=== PATIENT | male | born 1965 | race Caucasian/White ===

== ENCOUNTER → 2021-05-30 12:13 | Outpatient (CLI) | payer OTHER, SELFPAY ==
--- NOTE | 2021-05-30 | DI.RAD.S_ITS ---
PROCEDURE: FL SHOULDER INJECTION MR/CT RT INDICATIONS: LABRAL TEAR COMPARISON: None. TECHNIQUE: The indications, alternatives, benefits, risks, and complications of the procedure were explained to the patient. Written informed consent was obtained and placed in the chart. The shoulder was examined fluoroscopically and a site for needle placement chosen for entry into the glenohumeral joint from an anterior approach. The skin was prepped and draped in a sterile fashion, and 1% lidocaine infiltrated from skin down to joint capsule. A spinal needle was inserted into the glenohumeral joint, and a small amount of iodinated contrast media injected to confirm intra-articular placement of the needle tip. This was followed by approximately 12 mL dilute solution of a gadolinium containing MR contrast agent. The needle was removed and a dressing was applied. The patient was given postprocedural instructions and sent to the MR suite for MR imaging. FINDINGS: A single fluoroscopic spot image demonstrates intra-articular location of injected iodinated contrast. IMPRESSION: Successful fluoroscopically guided administration of dilute Gadolinium solution into the shoulder joint for MR arthrogram. Dictated by: Ferny Hargrove M.D. on 05/30/2021 at 15:12 Approved by: Ferny Hargrove M.D. on 05/30/2021 at 15:12
--- NOTE | 2021-05-30 | DI.MRI.S_ITS ---
PROCEDURE: MR SHOULDER RT W CON INDICATIONS: LABRAL TEAR TECHNIQUE: After the administration of 12 mL of dilute intra-articular Gadolinium contrast, oblique coronal T1 and T2 spin echo with fat saturation, oblique sagittal T1 spin echo with and without fat saturation, oblique sagittal T2 fast spin echo with fat saturation, axial T1 spin echo with fat saturation through the shoulder. COMPARISON: None. FINDINGS: Image quality: Excellent. Rotator cuff: Supraspinatus tendinopathy with full-thickness tear measuring approximately 1.6 cm (7-11). Infraspinatus tendinopathy with small partial bursal and interstitial tears. The teres minor and subscapularis tendons are intact. Grade 1/2 atrophy of the supraspinatus muscle. Bones and bursae: No bone marrow contusions or fractures. Mild acromioclavicular joint degeneration. No os acromiale. Capsule and soft tissues: Linear signal within the biceps labral complex (7-10), compatible with tear. The long head of the biceps tendon demonstrates normal location and morphology. The rotator interval appears normal, without fibrosis. The coracohumeral ligament is of normal thickness. No intra-articular bodies. IMPRESSION: 1. Full-thickness tear of the supraspinatus as detailed above. 2. Infraspinatus tendinopathy with small partial bursal and interstitial tears. 3. Labral tear the biceps attachment. Dictated by: Víctor Kimball M.D. on 05/30/2021 at 14:08 Approved by: Víctor Kimball M.D. on 05/30/2021 at 14:14
--- NOTE | 2021-05-30 12:19 | DI.MRI.S_ITS ---
PROCEDURE: MR CERVICAL SPINE WO CON INDICATIONS: LABRAL TEAR OF RIGHT SHOULDER TECHNIQUE: Noncontrast sagittal T1 spin echo and T2 fast spin echo, sagittal STIR, foraminal oblique sagittal T2 fast spin echo, and axial gradient echo or T2 fast spin echo through the cervical spine. COMPARISON: None. FINDINGS: Image quality: Excellent. Alignment and Curvature: There is normal bony alignment. Bone Marrow: Marrow demonstrates normal overall signal. Spinal Cord: Visualized spinal cord has normal size and signal. No cerebellar tonsillar herniation. Paraspinous Soft Tissues: No paravertebral masses. Prevertebral soft tissues are normal in thickness. Discs: Moderate to severe desiccation is present at C5-6, C6-7, mild throughout the remainder of the cervical spine. C2-C3: No disc bulge, spinal stenosis or foraminal narrowing. C3-C4: Mild disc bulge with minimal spinal stenosis. Moderate to severe left foraminal narrowing with prominent uncovertebral hypertrophy. C4-C5: Mild disc bulge without spinal stenosis. No foraminal narrowing. Mild uncovertebral hypertrophy. C5-C6: Mild disc bulge with [id number] spinal stenosis. Moderate to severe bilateral foraminal narrowing with uncovertebral hypertrophy. C6-C7: Mild disc bulge with moderate spinal stenosis. Moderate to severe bilateral foraminal narrowing, left greater than right with uncovertebral hypertrophy. C7-T1: No disc bulge, spinal stenosis or foraminal narrowing. IMPRESSION: 1. Multilevel disc bulges. 2. Multilevel spinal stenosis most notable at C6-7 secondary to disc bulge. 3. Multilevel foraminal narrowing most severe at C3-4, C5-6 and C6-7 secondary to uncovertebral arthropathy. Dictated by: Lali Tovar M.D. on 05/30/2021 at 14:02 Approved by: Lali Tovar M.D. on 05/30/2021 at 14:08
== END ==
PROVIDERS: Referring Provider Family Medicine; Visit Provider Family Medicine
DX: S43.491A Other sprain of right shoulder joint, initial encounter (principal); S46.011A Strain of muscle(s) and tendon(s) of the rotator cuff of right shoulder, initial encounter; M47.22 Other spondylosis with radiculopathy, cervical region; M50.11 Cervical disc disorder with radiculopathy, high cervical region; M48.02 Spinal stenosis, cervical region
CPT/HCPCS: 23350; 72141; 73222; 77002